=== PATIENT | male | born 1990 | race Caucasian/White ===

== ENCOUNTER 2017-04-14 10:05 | Emergency (ER) | payer SELFPAY ==
[~2017-04-14] VITALS: Ht 177.8 cm; Wt 91.1 kg
[~2017-04-14 10:05] MED LIST: NAPROSYN500 MG PO; ZOFRAN ODT4 MG PO
[2017-04-14 11:03] LABS: BASOPHIL (%) 0.7 % (0-1); BASOPHIL COUNT 0.1 K/uL (0-0.1); EOSINOPHIL (%) 4.2 % (0-5); EOSINOPHIL COUNT 0.3 K/uL (0-0.3); HEMATOCRIT 42.6 % (38.0-50.0); IMMATURE GRANULOCYTE (%) 0.3 % (0.0-0.7); LYMPHOCYTE (%) 33.3 % (15-42); LYMPHOCYTE COUNT 2.3 K/uL (1.0-2.8); MCH 30.5 PG (29.0-34.0); MCHC 35.2 G/DL (30.0-36.0); MCV 86.8 FL (86-99); MONOCYTE COUNT 0.6 K/uL (0-0.8); NEUTROPHIL (%) 53.5 % (45-76); NEUTROPHIL COUNT 3.7 K/uL (1.8-6.4); PLATELET COUNT 306 K/uL (156-360); RBC DIS.WIDTH-CV 11.8 % (11.8-14.6); RBC DIS.WIDTH-SD 37.2 % (39-53); RED BLOOD COUNT 4.91 M/uL (4.00-5.50); WHITE BLOOD COUNT 6.9 K/uL (4.1-10.2)
[2017-04-14 11:12] LABS: ALBUMIN 4.1 g/dL (3.2-4.8)
[2017-04-14 11:13] LABS: CHLORIDE 103 mEq/L (99-109); POTASSIUM 4.2 mEq/L (3.7-5.4); SODIUM 138 mEq/L (136-147)
[2017-04-14 11:15] LABS: GLUCOSE 90 mg/dL (70-99); TOTAL PROTEIN 7.7 g/dL (6.4-8.3)
[2017-04-14 11:17] LABS: TOTAL BILIRUBIN 0.7 mg/dL (0.0-1.0)
[2017-04-14 11:18] LABS: SERUM ETHYL ALCOHOL < 10 mg/dL
[2017-04-14 11:19] LABS: ALKALINE PHOSPHATASE 82 IU/L (3-129); GFR ESTIMATE (CALCULATED) > 59 mL/min/ (58.99-99999)
[2017-04-14 11:20] LABS: AST (GOT) 21 IU/L (2-34)
[2017-04-14 11:21] LABS: UREA NITROGEN (BUN) 13 mg/dL (9-23)
[2017-04-14 11:22] LABS: ALT (GPT) 41 IU/L (3-49); SALICYLATE < 5.0 MG/DL (15-30)
[2017-04-14 11:23] LABS: ACETAMINOPHEN (TYLENOL) < 10 mcg/mL (10-30)
[2017-04-14 11:24] LABS: TROP-I INTERPRETATION NEGATIVE; TROPONIN-I < 0.01 ng/mL (0.0-0.30)
[2017-04-14 11:54] LABS: APPEARANCE CLEAR ((CLEAR)); BILIRUBIN NEGATIVE; BLOOD NEGATIVE; COLOR COLORLESS ((YELLOW)); GLUCOSE (STRIP) NEGATIVE; KETONES NEGATIVE; LEUKOCYTES NEGATIVE; NITRITE NEGATIVE; PROTEIN (STRIP) NEGATIVE; SPECIFIC GRAVITY 1.005 (1.000-1.030); UCUL ADDED? NO; UROBILINOGEN 0.2 MG/DL (0.2-1.0)
[2017-04-14 12:12] LABS: THC CANNABINOIDS NEGATIVE (50 ng/mL)
[2017-04-14 12:13] LABS: AMPHETAMINE NEGATIVE (500 ng/mL); BARBITURATES NEGATIVE (200 ng/mL); BENZODIAZEPINES NEGATIVE (150 ng/mL); BUPRENORPHINE NEGATIVE (10 ng/mL); COCAINE NEGATIVE (150 ng/mL); METHADONE NEGATIVE (200 ng/mL); METHAMPHETAMINE NEGATIVE (500 ng/mL); OPIATES (MORPHINE) NEGATIVE (100 ng/mL); OXYCODONE NEGATIVE (100 ng/mL); PHENCYCLIDINE NEGATIVE (25 ng/mL); PROPOXYPHENE NEGATIVE (300 ng/mL); TRICYCLIC ANTIDEPRESSANTS NEGATIVE (300 ng/mL)
[2017-04-14 13:22] LABS: THYROTROPIN (TSH) 1.8 MIU/L (0.4-5.5)
[2017-04-14] MEDS ORDERED: XARELTO1 EACH PO (16:19)
[2017-04-14] MEDS ORDERED: CARDIZEM SR120 MG PO (16:19)
[2017-04-14 17:20] VITALS: BP 145/95
== END 2017-04-14 17:23 | disposition home or self-care (01) ==
LOC: EME 10:05
PROVIDERS: Physician Assistant
DX: I48.91 Unspecified atrial fibrillation (principal); R55 Syncope and collapse; R00.0 Tachycardia, unspecified; R06.83 Snoring
CPT/HCPCS: 71046; 80053; 81003; 84443; 84484; 85025; 87502; 93005; 93306; 99281; 99285; G0480; J7120